=== PATIENT | male | born 1960 | race Caucasian/White ===

== ENCOUNTER 2017-11-13 12:20 | Emergency (ER) | payer OTHER ==
[2017-11-13 13:15] VITALS: BP 119/75
--- NOTE | 2017-11-13 13:39 | UC ---
FLU HPI - History of Current Complaint Chief Complaint: UCRespiratory Stated Complaint: COUGH Time Seen by Provider: 11/13/17 13:33 Hx Obtained From: Patient Onset/Duration: Gradual Onset - started with nasal shreya 3 days ago, became much worse yesterday with ST and fever 101.0 cough, body aches, faitgue Severity Currently: Moderate Severity Initially: Mild Pain Intensity: 5 Associated Signs & Symptoms: Positive: Fever, Cough, Sore Throat - Allergy/Home Medications Allergies/Adverse Reactions: Allergies Allergy/AdvReac Type Severity Reaction Status Date / Time No Known Allergies Allergy Verified 11/13/17 13:21 Home Medications: Home Medications Ibuprofen TAB* [Advil TAB*] 400 mg PO ONCE 11/13/17 [History Confirmed 11/13/17] PMH/Surg Hx/FS Hx/Imm Hx Previously Healthy: Yes - Surgical History Surgical History: None - Family History Known Family History: Positive: None - Social History Occupation: Employed Full-time Lives: With Family Alcohol Use: Occasionally Substance Use Type: None Smoking Status (MU): Never Smoked Tobacco Review of Systems Constitutional: Fever, Chills, Fatigue Skin: Negative Eyes: Negative ENT: Sore Throat Respiratory: Cough Cardiovascular: Negative Neurological: Negative Psychological: Negative Is Patient Immunocompromised?: No All Other Systems Reviewed And Are Negative: Yes Physical Exam Triage Information Reviewed: Yes Appearance: Well-Appearing, No Pain Distress, Well-Nourished Vital Signs: Initial Vital Signs Temp 98.6 F 11/13/17 13:12 Pulse 85 11/13/17 13:12 Resp 12 11/13/17 13:12 BP 119/75 11/13/17 13:12 Pulse Ox 98 11/13/17 13:12 Vital Signs Reviewed: Yes Eye Exam: Normal Eyes: Positive: Conjunctiva Clear ENT: Positive: Pharynx normal, Nasal congestion, TMs normal. Negative: Sinus tenderness Neck exam: Normal Neck: Positive: Nontender, No Lymphadenopathy Respiratory Exam: Normal Respiratory: Positive: Lungs clear Cardiovascular Exam: Normal Psychological Exam: Normal Skin Exam: Normal Skin: Negative: rashes Flu Course/Dx - Differential Dx/Diagnosis Differential Diagnosis/HQI/PQRI: Bronchitis, Influenza, Upper Respiratory Infection Provider Diagnoses: Influenza B Discharge - Discharge Plan Condition: Stable Disposition: HOME Prescriptions: Oseltamivir CAP* [Tamiflu CAP*] 75 mg PO BID #10 cap Patient Education Materials: Influenza (ED) Referrals: Sebastián Lara MD [Primary Care Provider] - 3 Days (If no improvement) Additional Instructions: drink plenty of fluids and use over the counter tylenol or ibuprofen for pain and fever Report to ER if at any time your symptoms worsen take Tamiflu as directed Notify close contact that you have Influenza and encourage them to contact their provider to discuss possible need for treatment
== END 2017-11-13 14:10 | disposition home or self-care (01) ==
LOC: UCEAST 12:20
DX: J11.1 Influenza due to unidentified influenza virus with other respiratory manifestations (principal)
CPT/HCPCS: 87502; 99212; G0463